=== PATIENT | male | born 1975 | race Caucasian/White ===

== ENCOUNTER 2017-01-28 22:52 | Emergency (ER) | payer SELFPAY ==
[~2017-01-28] VITALS: Ht 188 cm; Wt 80.0 kg
[2017-01-28] MEDS ORDERED: NALOXONE 1 MG/ML, 2ML ONE (23:48)
[2017-01-29] MEDS ORDERED: SODIUM CHLORIDE 0.9% 1,000ML IVBOLUS ONE
[2017-01-29 00:38] LABS: ASPARTATE AMINO TRANSFERASE 31 U/L (15-37); BLOOD UREA NITROGEN 12 mg/dL (7-18)
[2017-01-29] MEDS ORDERED: NALOXONE 1 MG/ML, 2ML IVPush ONE ×2 (04:00)
[2017-01-29] MEDS ORDERED: NALOXONE 1 MG/ML, 2ML ONE (04:20)
[2017-01-29 08:22] VITALS: BP 104/67
== END 2017-01-29 09:12 | disposition home or self-care (01) ==
LOC: ED 01-29 09:06
DX: F10.120 Alcohol abuse with intoxication, uncomplicated (principal); Y90.9 Presence of alcohol in blood, level not specified; Z72.89 Other problems related to lifestyle
CPT/HCPCS: 36415; 70450; 80053; 80307; 85025; 96361; 96374; 96376; 99285; J2310; J7030